=== PATIENT | male | born 1940 | race Caucasian/White ===

== ENCOUNTER → 2019-07-17 | Day surgery (SDC) | payer MEDICARE ==
[~2019-07-17] MED LIST: Adenosine* 3 MG/ML VIAL ONE; Bivalirudin(*) 250 MG VIAL ONE; Diazepam TAB(*) 5 MG ONE; Heparin 2 UNITS/ML IVPREMIX* 3,000 UNIT/1,500 ML BAG IV ONE; Heparin(*) 1000 UNIT/ML 10 ML VIAL CATH LAB IV ONE; Iodixanol 320 (CONTRAST) 100 ML SDV ONE; Iohexol 350 (CONTRAST) 200 ML MDV IV ONE; Lidocaine 1% INJ* 10 MG/ML 30 ML SDV ONE; Midazolam* 1 MG/ML 5 ML VIAL (5 MG) ONE; NS 0.9% 1000 ML** 1,000 ML IV SCH; VERAPAMIL 2.5 MG/ML 2 ML VIAL ** 5 mg/2 ml ONE; fentaNYL* 50 MCG/ML 2 ML VIAL (100 MCG VIAL) ONE; nitroGLYCERIN DRIP* 25,000 MCG/250 ML BTL ONE
[2019-07-17 13:02] VITALS: BP 129/77
--- NOTE | 2019-07-18 09:41 | CATH ---
CC: Dr. Clark Maria; Dr. Viviana Valero * CARDIAC CATHETERIZATION REPORT: DATE OF PROCEDURE: 07/17/19 - [facility] CATH INDICATIONS FOR PROCEDURE: Asked by Dr. Clark Maria to perform coronary arteriography in light of the patient having severe aortic stenosis with report of worsening exertionally related chest discomfort and shortness of breath. PROCEDURE: Coronary arteriography, fractional flow reserve analysis of the mid LAD lesion. Consent - the patient was interviewed and examined in the holding area where the risks and benefits were explained. He understood them and wished to proceed. EQUIPMENT UTILIZED: 1. Right radial artery sheath was a 6-[place] Slender sheath. 2. Diagnostic guidewire was a 260 length Joshi curved guidewire. 3. Diagnostic coronary arteriography catheter was a 5-[place] TIG4 catheter for the right coronary artery and an [place] 4.5 curved 5-[place] catheter for the left coronary artery. 4. Guiding catheter for the FFR analysis of mid LAD - was a 6-[place] 3.75 curved Heartrail III catheter. 5. The pressure wire utilized was a Verrata plus pressure guidewire by [employer]. 6. The closure device utilized was a regular size Vasc Band by vascular [employer]. MEDICATIONS GIVEN DURING THE PROCEDURE: Radial artery cocktail 4800 units of heparin, 300 mcg of nitroglycerin, 3 mg of Verapamil. 1% lidocaine locally, 1 mg of Versed. PRECARDIAC CATHETERIZATION LABORATORY RESULTS: Hemoglobin and hematocrit of 15.1 and 44 with a platelet count of 170,000. BUN and creatinine of 19 and 0.96. Sodium 138, potassium 4.7, chloride 106, bicarb 23. DESCRIPTION OF PROCEDURE: The patient was brought to the cardiovascular laboratory where a formal time-out was performed. He was prepped and draped in sterile fashion, and under ultrasound guidance, the right radial artery was cannulated and sheath was placed. Coronary arteriography was performed utilizing the TIG4 catheter as well as the 4.5 curved [place] left coronary catheter. Following this, the decision was made to perform FFR to the mid LAD. The guide catheter was utilized. ACT was checked and found to be in acceptable range to perform the procedure. FFR was performed. After this, additional injection was made with the wire removed to assess the left anterior descending artery post FFR analysis. Following this, the guide catheter and sheath were removed and hemostasis was obtained with a Vas Band. The total contrast used was 170 cc of Omnipaque dye, the radiation exposure included 14.3 minutes of fluoro time, the air kerma radiation was 2690 milligray , the DAP radiation was 14,475 microgray per meter squared. CORONARY ARTERIOGRAPHY: A. Right coronary artery: A dominant vessel supplying several acute marginal branches in addition to a somewhat small caliber posterior descending artery followed by 2 posterior left ventricular branches. There was mild-to- moderate disease in the proximal portion with a degree of luminal reduction noted to be as much as 40% to 45%. There was a long acute marginal branch just before the artery tuned on to the inferior surface of the heart that had mild disease with a mid to distal lesion of 35% to 40%. The last posterior left ventricular branch was moderate in size with an area of 40% to 45% stenosis noted. B. Left coronary artery: 1. Left main - widely patent with no obstruction noted. 2. Left anterior descending artery. The proximal portion of the left anterior descending artery had calcification particularly severe in the mid portion after the first septal deputy k 9 and first diagonal branch. This area was very difficult to visualize and in some views appeared to have a significant lesion as much as 75%. Past this point, it supplied a bifurcating mid diagonal branch. The LAD continued to the apical region and slightly on to the distal inferior wall. The proximal portion of the LAD had a 35% to 40% narrowing before the first septal deputy k 9. 3. Circumflex artery - a nondominant vessel with several obtuse marginal branches with several low-lying posterior left ventricular branches. Of note, there was a mid trifurcating obtuse marginal branch that had a proximal narrowing of 45% to 50%. After the first bifurcation, there was a significant 75% to 80% lesion seen prior to the last bifurcation of the obtuse marginal branch. FRACTIONAL FLOW RESERVE ANALYSIS OF MID LEFT ANTERIOR DESCENDING ARTERY: Heavily calcified lesion. Of note, on just passing the FFR wire, the FFR at rest before any adenosine was of 0.66 to 0.73 consistent with a significant hemodynamic lesion even without utilizing adenosine. OVERALL ASSESSMENT: Significant coronary artery disease involving the heavily calcified mid left anterior descending artery with fractional flow reserve documenting the significant nature of the lesion as well as a significant lesion seen in the mid obtuse marginal mid portion prior to the last bifurcation of this vessel. [id number] disease noted throughout the right coronary artery system. This information was shared with Dr. Clark Maria after the cardiac catheterization was performed. He will be reviewing this and will personally call the patient to discuss further management regarding dealing with the coronary artery disease as well as his severe aortic stenosis. [id number] #: [id number] MTDD
== END | disposition home or self-care (01) ==
LOC: CHICATH 08:25
PROVIDERS: ATTEND Internal Medicine Cardiovascular Disease
DX: I25.119 Atherosclerotic heart disease of native coronary artery with unspecified angina pectoris (principal); I25.84 Coronary atherosclerosis due to calcified coronary lesion; R06.02 Shortness of breath; I35.0 Nonrheumatic aortic (valve) stenosis; I10 Essential (primary) hypertension; I71.2 Thoracic aortic aneurysm, without rupture; E78.5 Hyperlipidemia, unspecified; G47.30 Sleep apnea, unspecified; E74.39 Other disorders of intestinal carbohydrate absorption; Z87.891 Personal history of nicotine dependence; E66.9 Obesity, unspecified
CPT/HCPCS: 76937; 85347; 93454; 99156; 99157; A9270-GY; C1753; J0153; J0583; J1644; J2250; J3010